=== PATIENT | female | born 1965 | race African-American/Black ===

== ENCOUNTER 2020-08-03 08:03 | Outpatient (CLI) | payer OTHER ==
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
== END 2020-08-03 08:04 | disposition home or self-care (01) ==
LOC: BICULT 08:03
PROVIDERS: ATTEND Nurse Practitioner Family
DX: R19.00 Intra-abdominal and pelvic swelling, mass and lump, unspecified site (principal); R10.815 Periumbilic abdominal tenderness
CPT/HCPCS: 76705